=== PATIENT | female | born 1960 | race African-American/Black ===

== ENCOUNTER 2016-12-06 16:51 | Emergency (ER) | payer OTHER ==
[~2016-12-06] VITALS: Ht 162.6 cm; Wt 77.3 kg
[~2016-12-06 16:51] MED LIST: ALBU17AE16 IH; ALBU17AE27 IH; ASPI-1093 PO; LISI-660 PO; METF500T4 PO; SIMV-260 PO
[2016-12-06] MEDS ORDERED: ALBUTEROL SULFATE 2.5 MG/0.5 ML NEB SOLUTION NEB ONE (19:00)
[2016-12-06] MEDS ORDERED: IPRATROPIUM BROMIDE 0.5 MG/2.5 ML NEB SOLUTION NEB ONE (19:00)
[2016-12-06] MEDS ORDERED: PredniSONE 20 MG TABLET PO ONE (19:15)
[2016-12-06] MEDS ORDERED: ALBUTEROL SULFATE 5 MG/ML 20 ML NEB SOLN [BULK] NEB ONE (19:45)
[2016-12-06 20:37] VITALS: BP 142/74
== END 2016-12-06 20:38 | disposition home or self-care (01) ==
LOC: EMS 16:52
DX: F17.210 Nicotine dependence, cigarettes, uncomplicated (principal); I10 Essential (primary) hypertension; E11.9 Type 2 diabetes mellitus without complications
CPT/HCPCS: 94640; 94644; 99285; 99406; J7512; J7611; J7613

== ENCOUNTER 2019-05-16 11:49 | Emergency (ER) | payer OTHER ==
[~2019-05-16] VITALS: Ht 162.6 cm; Wt 92.0 kg
[~2019-05-16 11:49] MED LIST changes: -ALBU17AE16 IH; -ASPI-1093 PO; +ASPI-1182 PO; +METF-960 PO; -METF500T4 PO
[2019-05-16] MEDS ORDERED: ACETAMINOPHEN 500 MG TABLET PO ONE (12:30)
[2019-05-16] MEDS ORDERED: SODIUM CHLORIDE 0.9% 2,000 ML IV ONE (12:30)
[2019-05-16] MEDS ORDERED: CLIN150C9 PO (12:37)
[2019-05-16] MEDS ORDERED: GLIP5 PO (12:37)
[2019-05-16 12:44] LABS: GLUCOSE,POINT OF CARE 237 MG/DL (70-110)
[2019-05-16 12:55] LABS: BASOPHILS % (AUTO) 0.4 % (0.0-2.0); EOSINOPHILS % (AUTO) 0 % (1.0-6.0); HEMATOCRIT 37.9 % (36-46); HEMOGLOBIN 12.8 g/dL (12.0-16.0); LYMPHOCYTES # (AUTO) 1.7 K/uL (1.0-4.8); MEAN CORPUSCULAR HEMOGLOBIN 31.5 pg (26.0-34.0); MEAN CORPUSCULAR HGB CONC 33.7 G/dL (31.0-37.0); MEAN CORPUSCULAR VOLUME 94 fL (80-100); MONOCYTES # (AUTO) 1.3 K/uL (0.1-1.0); MONOCYTES % (AUTO) 6.8 % (2.0-9.0); NEUTROPHILS # (AUTO) 15.5 K/uL (1.8-7.7); NEUTROPHILS % (AUTO) 83.8 % (40.0-70.0); PLATELET COUNT (AUTO) 198 K/uL (150-450); RED BLOOD CELL COUNT(AUTO) 4.05 MIL/uL (4.00-5.20); RED CELL DISTRIBUTION WIDTH 13.1 % (11.5-14.5)
[2019-05-16 13:09] LABS: ANION GAP 11 mmol/L (8-16); CALCIUM, TOTAL 8.7 mg/dL (8.8-10.5); CARBON DIOXIDE 23 mmol/L (22-29); CHLORIDE 102 mmol/L (98-107); CREATININE 0.79 mg/dL (0.60-1.30); GLOMERULAR FILTR. RATE CALC > 60 mL/min (>60); GLUCOSE,RANDOM 230 mg/dL (70-110); POTASSIUM 3.4 mmol/L (3.5-5.1); SODIUM SERUM 136 mmol/L (136-145); UREA NITROGEN, BLOOD 12 mg/dL (7-18)
[2019-05-16] MEDS ORDERED: CefTRIAXone 1 GM/DEXTROSE 50 ML IV ONE (13:15)
[2019-05-16 13:16] LABS: ALANINE AMINOTRANSFERASE 20 U/L (12-78); ALKALINE PHOSPHATASE 82 U/L (46-116); ASPARTATE AMINOTRANSFERASE 16 U/L (15-37); BILIRUBIN,TOTAL 1.2 mg/dL (0.1-1.0); LIPASE 87 U/L (73-393); TOTAL PROTEIN, SERUM 7.9 g/dL (6.4-8.2)
[2019-05-16 13:20] LABS: LACTIC ACID 1.1 mmol/L (0.4-2.0)
[2019-05-16] MEDS ORDERED: DIPHENOXYLATE/ATROP 2.5-0.025 MG TABLET PO ONE (14:00)
[2019-05-16] MEDS ORDERED: POTASSIUM CHLORIDE 10% 40 MEQ/30 ML LIQUID UDCUP PO ONE (14:00)
[2019-05-16] MEDS ORDERED: ALBU8HFA IH (14:13)
[2019-05-16 14:35] LABS: APPEARANCE,URINE CLOUDY (CLEAR); GLUCOSE, URINE (UA) 500 mg/dL (NEGATIVE); KETONES,URINE >=80 mg/dL (NEGATIVE); LEUKOCYTE ESTERASE ,URINE SMALL (NEGATIVE); NITRATE,URINE NEGATIVE (NEGATIVE); OCCULT BLOOD,URINE SMALL (NEGATIVE); PROTEIN,URINE SEE CONFIRM (NEGATIVE)
[2019-05-16] MEDS ORDERED: ONDANSETRON HCL 4 MG/2 ML VIAL IVP ONE (14:45)
[2019-05-16 14:56] LABS: BILIRUBIN,URINE PRELIM. POSITIVE (NEGATIVE); SULFOSALICYLIC ACID,URINE 3+ (Negative)
[2019-05-16 14:57] LABS: BACTERIA,URINE Few /HPF (None Seen); SQUAMOUS EPITHELIAL CELL,UR Moderate /LPF (None Seen)
[2019-05-16] MEDS ORDERED: SODIUM CHLORIDE 0.9% 1,000 ML IV ONE (17:30)
[2019-05-16 18:44] VITALS: BP 110/68
== END 2019-05-16 19:00 | disposition home or self-care (01) ==
LOC: EMS 11:51
DX: K52.9 Noninfective gastroenteritis and colitis, unspecified (principal); E86.0 Dehydration; J02.9 Acute pharyngitis, unspecified; F17.210 Nicotine dependence, cigarettes, uncomplicated; J45.909 Unspecified asthma, uncomplicated; E11.9 Type 2 diabetes mellitus without complications; I10 Essential (primary) hypertension; Z79.899 Other long term (current) drug therapy; Z79.84 Long term (current) use of oral hypoglycemic drugs; Z79.82 Long term (current) use of aspirin; Z88.0 Allergy status to penicillin
CPT/HCPCS: 36415; 71045; 74176; 80053; 81001; 82962; 83605; 83690; 84484; 85025; 87040; 87086; 96361; 96365; 96375; 99284; 99406; J0696; J2405; J7030

== ENCOUNTER 2019-05-21 15:35 | Emergency (ER) | payer OTHER ==
[~2019-05-21] VITALS: Ht 162.6 cm; Wt 72.7 kg
[~2019-05-21 15:35] MED LIST changes: -ALBU17AE27 IH; +ALBU8HFA IH; +CLIN150C9 PO; +GLIP5 PO
[2019-05-21] MEDS ORDERED: KETOROLAC TROMETHAMINE 10 MG TABLET PO ONE (17:00)
[2019-05-21 17:43] VITALS: BP 131/80
== END 2019-05-21 17:45 | disposition home or self-care (01) ==
LOC: EMS 15:35
DX: M76.62 Achilles tendinitis, left leg (principal); J45.909 Unspecified asthma, uncomplicated; E11.9 Type 2 diabetes mellitus without complications; I10 Essential (primary) hypertension; F17.210 Nicotine dependence, cigarettes, uncomplicated; Z88.0 Allergy status to penicillin; Z79.82 Long term (current) use of aspirin; Z79.899 Other long term (current) drug therapy; Z79.84 Long term (current) use of oral hypoglycemic drugs

== ENCOUNTER 2023-08-17 13:12 | Emergency (ER) | payer OTHER ==
[~2023-08-17] VITALS: Ht 162.6 cm; Wt 75.0 kg
[~2023-08-17 13:12] MED LIST changes: +ALBU18HF12 IH; -ALBU8HFA IH; -ASPI-1182 PO; +ASPI-1444 PO; +CLIN-26 PO; -CLIN150C9 PO; -GLIP5 PO; +GLIP5TAB16 PO; -LISI-660 PO; +LISI-892 PO; +METF-1211 PO; -METF-960 PO
[2023-08-17 13:22] VITALS: TEMP 98
[2023-08-17] MEDS: HYDROCODONE/ACETAMINOPHEN 5-325 MG TABLET PO ONE (14:06)
[2023-08-17] MEDS: SODIUM CHLORIDE 0.9% 1,000 ML IV ONE (14:06)
[2023-08-17 14:10] LABS: BASOPHILS % (AUTO) 0.9 % (0.0-2.0); EOSINOPHILS % (AUTO) 2.7 % (1.0-6.0); HEMATOCRIT 44.1 % (36-46); HEMOGLOBIN 14.9 g/dL (12.0-16.0); LYMPHOCYTES # (AUTO) 1.3 K/uL (1.0-4.8); MEAN CORPUSCULAR HEMOGLOBIN 32.3 pg (26.0-34.0); MEAN CORPUSCULAR HGB CONC 33.8 G/dL (31.0-37.0); MEAN CORPUSCULAR VOLUME 96 fL (80-100); MONOCYTES # (AUTO) 0.5 K/uL (0.1-1.0); MONOCYTES % (AUTO) 8.1 % (2.0-9.0); NEUTROPHILS # (AUTO) 4.6 K/uL (1.8-7.7); NEUTROPHILS % (AUTO) 68.3 % (40.0-70.0); PLATELET COUNT (AUTO) 224 K/uL (150-450); RED BLOOD CELL COUNT(AUTO) 4.61 MIL/uL (4.00-5.20); RED CELL DISTRIBUTION WIDTH 12.6 % (11.5-14.5); WHITE BLOOD COUNT (AUTO) 6.7 K/uL (4.5-11.0)
[2023-08-17 14:18] LABS: ANION GAP 8 mmol/L (8-16); CALCIUM, TOTAL 9.5 mg/dL (8.8-10.5); CARBON DIOXIDE 26 mmol/L (22-29); CHLORIDE 102 mmol/L (98-107); GLOMERULAR FILTR. RATE CALC > 60 mL/min (>60); GLUCOSE,RANDOM 338 mg/dL (70-110); POTASSIUM 4.2 mmol/L (3.5-5.1); SODIUM SERUM 136 mmol/L (136-145); UREA NITROGEN, BLOOD 10 mg/dL (7-18)
[2023-08-17 14:24] LABS: ALANINE AMINOTRANSFERASE 16 U/L (12-78); ALBUMIN 3.8 g/dL (3.4-5.0); ALKALINE PHOSPHATASE 113 U/L (46-116); ASPARTATE AMINOTRANSFERASE 14 U/L (15-37); BILIRUBIN,TOTAL 0.9 mg/dL (0.1-1.0); TOTAL PROTEIN, SERUM 7.5 g/dL (6.4-8.2)
[2023-08-17] MEDS ORDERED: TRAM-559 PO (15:09)
[2023-08-17] MEDS: INSULIN REGULAR, HUMAN 100 UNITS/ML IVP ONE (15:09)
[2023-08-17] MEDS: PredniSONE 20 MG TABLET PO ONE (15:37)
[2023-08-17 15:47] VITALS: BP 138/79; PULSE 84; RESP 18
[2023-08-18 05:46] LABS: GLUCOMETER DEV NAME(LOC) ERT.5; GLUCOSE,POINT OF CARE 171 MG/DL (70-110)
== END 2023-08-17 16:07 | disposition home or self-care (01) ==
LOC: EMS 13:12
DX: E11.65 Type 2 diabetes mellitus with hyperglycemia (principal); M65.9 Synovitis and tenosynovitis, unspecified; J45.909 Unspecified asthma, uncomplicated; I10 Essential (primary) hypertension; F17.210 Nicotine dependence, cigarettes, uncomplicated; Z98.890 Other specified postprocedural states; Z88.0 Allergy status to penicillin
CPT/HCPCS: 99284; 80053; 82962; 85025; 36415; 73110; 29125; J1815; J7512; J7030

== ENCOUNTER 2025-06-08 15:16 | Emergency (ER) | payer MEDICARE, OTHER ==
[~2025-06-08] VITALS: Ht 162.6 cm; Wt 58.2 kg
[~2025-06-08 15:16] MED LIST changes: +ATOR40TA71 PO; +BENZ-227 PO; +CEFD300C18 PO; -CLIN-26 PO; +DOXY-354 PO; +GLIP10TA17 PO; -GLIP5TAB16 PO; +INSREG SQ; +PRED-729 PO; -SIMV-260 PO
[2025-06-08 16:17] VITALS: BP 159/98; PULSE 101; RESP 20; TEMP 98; O2SAT 97
[2025-06-08] MEDS: ACETAMINOPHEN 500 MG TABLET PO ONE (16:19)
[2025-06-08] MEDS: LIDOCAINE 5% TRANSDERMAL PATCH TD ONE (16:20)
[2025-06-08] MEDS: KETOROLAC TROMETHAMINE 30 MG/ML VIAL IM ONE (16:20)
[2025-06-08] MEDS ORDERED: NAPR-1196 PO (17:18)
[2025-06-08] MEDS ORDERED: LIDO-57 TP (17:18)
[2025-06-08 17:25] LABS: GLUCOMETER DEV NAME(LOC) ERT.7; GLUCOSE,POINT OF CARE 281 MG/DL (70-110)
== END 2025-06-08 17:35 | disposition home or self-care (01) ==
LOC: EMS 15:16
DX: M62.830 Muscle spasm of back (principal); I10 Essential (primary) hypertension; J45.909 Unspecified asthma, uncomplicated; E11.65 Type 2 diabetes mellitus with hyperglycemia; Z79.82 Long term (current) use of aspirin; Z88.0 Allergy status to penicillin; Z79.899 Other long term (current) drug therapy
CPT/HCPCS: 99284; 82962 ×2; 96372; J1885